=== PATIENT | male | born 1980 | race Caucasian/White ===

== ENCOUNTER 2021-10-03 12:10 | Emergency (ER) | payer OTHER, SELFPAY ==
--- NOTE | ~2021-10-03 | XR_ITS ---
EXAMINATION: XR shoulder RT min 2V, XR elbow LT 2V CLINICAL INFORMATION: Fall. Pain. COMPARISON: None. TECHNIQUE: 3 view series left elbow; 3 view series right shoulder FINDINGS: Left elbow: The radial head appears intact. No fractures identified. Soft tissue inflammatory changes are noted along the ulnar aspect of the elbow. No joint effusion identified. No subluxations visualized. Soft tissue inflammatory changes are additionally noted adjacent to the olecranon and posterior aspect of the distal humerus. No embedded radiopaque foreign bodies visualized. Right shoulder: Normal glenohumeral alignment. 2 mm superior subluxation of the distal clavicle relative to the acromion. The visualized right ribs and lung are normal in appearance. No fractures identified. The AC joint measures 8 mm in width. XR/XR shoulder RT min 2V IMPRESSION: Left elbow: *No acute fractures or subluxations. *Soft tissue inflammatory changes. Right shoulder: *2 mm superior subluxation of the distal clavicle relative the acromion with borderline widening of the acromioclavicular joint. These findings may represent mild (type II) acromioclavicular joint injury.
--- NOTE | ~2021-10-03 | XR_ITS ---
EXAMINATION: XR shoulder RT min 2V, XR elbow LT 2V CLINICAL INFORMATION: Fall. Pain. COMPARISON: None. TECHNIQUE: 3 view series left elbow; 3 view series right shoulder FINDINGS: Left elbow: The radial head appears intact. No fractures identified. Soft tissue inflammatory changes are noted along the ulnar aspect of the elbow. No joint effusion identified. No subluxations visualized. Soft tissue inflammatory changes are additionally noted adjacent to the olecranon and posterior aspect of the distal humerus. No embedded radiopaque foreign bodies visualized. Right shoulder: Normal glenohumeral alignment. 2 mm superior subluxation of the distal clavicle relative to the acromion. The visualized right ribs and lung are normal in appearance. No fractures identified. The AC joint measures 8 mm in width. XR/XR elbow LT 2V IMPRESSION: Left elbow: *No acute fractures or subluxations. *Soft tissue inflammatory changes. Right shoulder: *2 mm superior subluxation of the distal clavicle relative the acromion with borderline widening of the acromioclavicular joint. These findings may represent mild (type II) acromioclavicular joint injury.
[2021-10-03 12:24] VITALS: BP 189/167; PULSE 93; RESP 18; TEMP 36.8; O2SAT 100; BMI 25.0
--- NOTE | 2021-10-03 12:40 | ED.GENADULT ---
HPI - General Adult General Chief complaint: Fall Stated complaint: shoulder pain Time Seen by Provider: 10/03/21 12:40 Source: patient Mode of arrival: ambulatory Limitations: no limitations History of Present Illness HPI narrative: Patient is a 41 year old male presenting to the emergency department today with right shoulder pain and left elbow pain after falling out of a wrestling ring. 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 Patient denies hitting his head with the incident. Patient denies any dizziness, lightheadedness, abdominal pain, nausea, vomiting, fever, chills, blurry vision, double vision, loss of vision, chest pain, difficulty breathing, shortness of breath, back pain, night sweats, pain with urination, increased urinary frequency, increased urinary urgency, blood in his urine or stool, syncope or a near syncopal episode, bowel incontinence, bladder incontinence, bowel retention, bladder retention, or any other complaints at this time. Onset (ago): hour(s) Location: left, right and upper extremity Radiation: non-radiation Severity: mild Severity scale (1-10): 3 Quality: dull Pain Consistency: constant Relieving factors: none Exacerbating factors: movement Associated symptoms: denies other symptoms Treatments prior to arrival: none Related Data Allergies Allergy/AdvReac Type Severity Reaction Status Date / Time No Known Allergies Allergy Unverified 01/09/20 16:30 [No Known Allergies*] Review of Systems Constitutional: Constitutional: Reports no additional constitutional complaints, Denies chills, Denies fever(s) and Denies night sweats Eyes: Eyes: Reports no additional eye complaints, Denies blurry vision, Denies change in vision, Denies diplopia, Denies eye discharge, Denies loss of vision and Denies eye pain ENT: Denies dizziness Cardiovascular: Cardiovascular: Reports no additional cardiovascular complaints, Denies chest pain, Denies lightheadedness, Denies Loss of Consciousness and Denies dyspnea Respiratory: Respiratory: Reports no additional respiratory complaints and Denies dyspnea Gastrointestinal: Gastrointestinal: Reports no additional gastrointestinal complaints, Denies abdominal pain, Denies melena, Denies hematochezia, Denies change in bowel habits and Denies change in stool character Genitourinary: Genitourinary: Reports no additional male genitourinary complaints, Denies hematuria, Denies oliguria, Denies difficulty urinating, Denies dysuria, Denies urinary frequency, Denies urinary hesitancy, Denies urinary incontinence and Denies urinary urgency Musculoskeletal: Musculoskeletal: Reports no additional musculoskeletal complaints, Denies numbness and Denies tingling Comments: right shoulder pain and left elbow pain Neurologic: Denies dizziness, Denies loss of vision, Denies numbness and Denies tingling Psychiatric: Psychiatric: Reports no additional psychiatric complaints Endocrine: Endocrine: Reports no additional endocrine complaints Hematologic/Lymphatic: Hematologic/Lymphatic: Reports no additional hematologic/lymphatic complaints Allergic/Immunologic: Allergic/Immunologic: Reports no additional allergic/immunologic complaints [facility] Past Medical History Attestation statement: The following information was validated with the patient. Source: old records reviewed Social History Social History Advance Directives: No Advance Directives Information Provided: No Physical Exam ED Vital Signs: Vital Signs - 24 hr 10/03/21 12:24 Temperature 98.3 F Pulse Rate 93 Respiratory Rate 18 Blood Pressure 189/167 H Pulse Oximetry 100 Oxygen Delivery Method Room Air BMI result Body Mass Index 25.0 Const General: cooperative, no acute distress, alert and awake Nutritional Appearance: well nourished Orientation/consciousness: patient oriented x3 Limitations: no limitations HENMT Head: Yes normal to inspection and Yes atraumatic Ears: hearing grossly normal bilaterally and external ears normal General nose exam: Normal external nose present, no nasal discharge noted and no epistaxis Face and sinus: Yes normal facial exam, No abrasion and No laceration Mouth: Normal oral and palatal mucosa present, no drooling and no muffled voice Eyes General: appearance normal, both eyes and all related structures Periorbital: periorbital findings normal Eyelids: Yes eyelids normal Conjunctivae: conjunctivae normal Pupils: Equal, round and reactive pupils present EOM: EOMs intact bilaterally Neck Neck: Yes normal visual inspection, Yes full ROM and Yes no lymphadenopathy Chest Chest palpation & inspection: normal inspection of the chest Resp Effort & Inspection: normal respiratory effort and able to speak in complete sentences Auscultation: clear to auscultation bilaterally Cardio Rate: regular rate Rhythm: regular rhythm GI Inspection: Yes normal to inspection Neuro General: patient oriented x3 and moves all extremities Cranial nerves: Yes Equal, round and reactive pupils present Cognition (Neuro): normal cognition Motor exam (neuro): 5/5 motor strength present throughout Sensory Exam: Normal double simultaneous stimulation for sensation Coordination: [id number] test normal Extrem Other: pain with ROM to the right shoulder General: Yes normal to inspection and Yes capillary refill normal Psych Appearance: grossly normal Mental Status: mental status grossly normal Affect: normal affect Attitude: cooperative Thought process: Normal thought process present Thought content: Normal thought content present Insight: Good insight present (Psych) Procedures Orthopedic Splinting/Casting Injury #1: Side: left Upper Extremity Injury Location: shoulder Upper Extremity Immobilizer: sling/shoulder immobilizer Medical Decision Making MDM Narrative Medical decision making narrative: Patient is a 41 year old male presenting to the emergency department today with right shoulder pain and left elbow pain. Patient's physical exam showed pain with ROM of the right shoulder but was otherwise unremarkable. Patient's left elbow x-ray showed no acute process. Patient's right shoulder x-ray showed a mild type 2 acromioclavicular joint injury. I explained my physical exam findings as well as all test results to the patient. I answered all questions asked by the patient. Patient's right shoulder was placed in a sling, without incident. PMS was in tact prior to and after sling was placed. I stressed the importance of the patient taking his medication as prescribed. I stressed the importance of the patient following up with his primary care provider and an orthopedic provider. I stressed the importance of the patient returning to the emergency department immediately if his symptoms were to worsen or if he were to develop any dizziness, shortness of breath, difficulty breathing, chest pain, blurry vision, loss of vision, nausea, vomiting, abdominal pain, fever, chills, back pain, or any other complaints. Patient verbalized agreement and understanding with this treatment plan and discharge. Differential Diagnosis Differential Diagnosis: shoulder seperation, shoulder injury Medical Records Medical records reviewed: Yes I reviewed the patient's medical records. Imaging Data Right shoulder and left elbow x-ray: Attestation: I personally reviewed and interpreted this imaging study as follows: My impression: Possible right shoulder injury. Radiologist's impression: EXAMINATION: XR shoulder RT min 2V, XR elbow LT 2V CLINICAL INFORMATION: Fall. Pain. COMPARISON: None. TECHNIQUE: 3 view series left elbow; 3 view series right shoulder FINDINGS: Left elbow: The radial head appears intact. No fractures identified. Soft tissue inflammatory changes are noted along the ulnar aspect of the elbow. No joint effusion identified. No subluxations visualized. Soft tissue inflammatory changes are additionally noted adjacent to the olecranon and posterior aspect of the distal humerus. No embedded radiopaque foreign bodies visualized. Right shoulder: Normal glenohumeral alignment. 2 mm superior subluxation of the distal clavicle relative to the acromion. The visualized right ribs and lung are normal in appearance. No fractures identified. The AC joint measures 8 mm in width. XR/XR elbow LT 2V IMPRESSION: Left elbow: *No acute fractures or subluxations. *Soft tissue inflammatory changes. ? Right shoulder: *2 mm superior subluxation of the distal clavicle relative the acromion with borderline widening of the acromioclavicular joint. These findings may represent mild (type II) acromioclavicular joint injury. Dictated By: Benson Mann MD Signed By: Electronically signed by Benson Mann MD 10/03/21 1333 Discharge Plan Discharge Clinical Impression: shoulder Patient Disposition: Home, Self-Care Instructions: Shoulder Sprain (ED) Additional Instructions: Follow up with your primary care provider and an orthopedic provider. Return to the emergency department immediately if your symptoms worsen or if you develop any dizziness, shortness of breath, difficulty breathing, chest pain, blurry vision, loss of vision, nausea, vomiting, abdominal pain, fever, chills, back pain, or any other complaints. Referrals: [facility] [place] Family [facility] [Provider Group] [facility] [place] [facility]] [facility] [place] [facility] [Provider Group] [facility] [place] [facility] [Provider Group] Interventions: ED Discharge Assessment Last Done: 10/03/21 14:27 Print Language: Lao
[2021-10-03] MEDS: Ketorolac Tromethamine 30 MG/ML VIAL IM (13:24)
[2021-10-03] MEDS: HYDROcodone Bit/Acetam 5/325 TABLET 1 TAB PO (14:21)
== END 2021-10-03 14:28 | disposition home or self-care (01) ==
PROVIDERS: Emergency Provider Emergency Medicine
DX: S43.111A Subluxation of right acromioclavicular joint, initial encounter (principal); M25.522 Pain in left elbow; W17.89XA Other fall from one level to another, initial encounter; Y93.72 Activity, wrestling; Y92.89 Other specified places as the place of occurrence of the external cause; Y99.9 Unspecified external cause status
CPT/HCPCS: 73030; 73070; 96372; 99283; 99284; J1885

== ENCOUNTER 2024-04-25 19:44 | Emergency (ER) | payer MEDICAID, SELFPAY ==
--- NOTE | 2024-04-25 | ECG_ITS ---
Test Reason : CHEST PAIN Blood Pressure : / mmHG Vent. Rate : 068 BPM Atrial Rate : 068 BPM P-R Int : 136 ms QRS Dur : 078 ms QT Int : 362 ms P-R-T Axes : 066 024 026 degrees QTc Int : 384 ms Normal sinus rhythm Normal ECG No previous ECGs available Referred By: Generic ED Physician Electronically Signed By:MINAL PIMENTEL MD
[2024-04-25 19:58] VITALS: BP 162/109; BP 189/102; PULSE 75; PULSE 76; RESP 20; TEMP 36.8; O2SAT 98; BMI 26.6
[2024-04-25 20:11] LABS: MANUAL DIFF FLAG NO
[2024-04-25 20:12] LABS: Basophils Absolute Auto 0.1 X10*3/uL (0.0-0.2); Basophils Percent Auto 0.6 % (0-2); Eosinophils Absolute Auto 0.2 X10*3/uL (0.0-0.4); Eosinophils Percent Auto 2.3 % (0-4); Hematocrit 42.1 % (42.0-52.0); Hemoglobin 14.4 g/dl (14.0-18.0); Imm Gran Abs Auto 0.02 X10*3/uL (0.00-0.03); Imm Gran Pct Auto 0.2 % (0.0-0.4); Lymphocytes Absolute Auto 2.1 X10*3/uL (1.2-4.9); Mean Corpuscular HGB Conc 34.2 g/dl (31.0-36.0); Mean Corpuscular Hemoglobin 31.2 pg (27.0-33.0); Mean Corpuscular Volume 91.3 fL (80.0-98.0); Mean Platelet Volume 8.8 fL (9.4-12.4); Monocytes Absolute Auto 0.7 X10*3/uL (0.1-1.2); Monocytes Percent Auto 8.4 % (2-11); Neutrophils Absolute Auto 5.6 x10*3/uL (2.0-8.3); Neutrophils Percent Auto 64.5 % (45-73); Platelet Count 261 X10*3/uL (160-400); Red Blood Count 4.61 X10*6/uL (4.60-5.80); Red Cell Distribution Width 11.5 % (11.0-16.0); White Blood Count 8.7 X10*3/uL (4.8-10.8)
[2024-04-25 20:26] LABS: Alanine Aminotransferase 32 U/L (0-40); Albumin Level 4.6 g/dL (3.5-5.0); Alkaline Phosphatase 79 U/L (39-117); Anion Gap 13 (12-20); Aspartate Amino Transferase 30 U/L (5-37); Bilirubin Total 0.6 mg/dL (0.0-1.0); Blood Urea Nitrogen 15 mg/dL (9-16); Calcium 9.2 mg/dL (8.4-10.2); Carbon Dioxide 26 mmol/L (22-29); Chloride 108 mmol/L (96-108); Creatinine Clr Calc Pharmacy 75.4; Estimated Glomerular Filt Rate > 60; Glucose Random 107 mg/dL (60-115); Potassium 4.1 mmol/L (3.3-5.1); Sodium 143 mmol/L (135-145); Total Protein 7.7 g/dL (6.5-8.0)
[2024-04-25 20:35] LABS: Troponin-I High Sensitivity < 2.7 ng/L (<3.5-35.0)
[2024-04-25 20:52] VITALS: BP 138/81; PULSE 67; RESP 16; TEMP 36.7; O2SAT 99
--- NOTE | 2024-04-25 21:41 | ED_ITS ---
HPI - Chest Pain General Chief Complaint: Chest Pain Stated Complaint: cp Time Seen by Provider: 04/25/24 21:39 Source: patient Mode of arrival: ambulatory Limitations: no limitations History of Present Illness ED Provider: HPI narrative: Patient's history of anxiety taking sertraline hydroxyzine feel that did not working feel very anxious for last few days with chest pain and palpitation patient is unable to sleep Related Data Previous Rx's ?Medication ?Instructions ?Recorded clonazepam 1 mg tablet (Klonopin) 1 mg PO BID PRN anxiety #14 tabs 04/25/24 Allergies Allergy/AdvReac Type Severity Reaction Status Date / Time No Known Allergies Allergy Verified 04/25/24 20:01 [No Known Allergies*] Review of Systems 2 Review of Systems: Yes all other systems are reviewed and are negative [facility] Social History Social History Smoked in Last 30 Days: Yes Use of substances other than those prescribed or required for medical reasons: No Advance Directives: No Advance Directives Information Provided: No Do you have a plan to hurt others: No Plan Physical Exam 2 Vital Signs: Vital Signs: Last Vital Signs Temp 98.1 F 04/25/24 22:12 Pulse 62 04/25/24 22:12 Resp 16 04/25/24 22:12 BP 150/88 H 04/25/24 22:12 Pulse Ox 98 04/25/24 22:12 O2 Del Method Room Air 04/25/24 22:12 BMI result Body Mass Index 26.6 Appearance: Alert. Oriented X3. No acute distress. anxious Eyes: PERRLA, No Nystagmus ENT: Pharynx normal. Oral Mucosa moist Neck: Normal inspection. Neck supple. CVS: Normal heart rate and rhythm. Pulses normal. Respiratory: No respiratory distress. Equal air entry bilateral, no wheezing/rales/rhonchi Abdomen: Soft and nontender. Bowel sounds are present, no mass palpable, no CVA tenderness Skin: Skin warm and dry. Normal skin color. Normal skin turgor. Extremities: No lower extremity edema. No calf tenderness Neuro: Oriented X 3. No motor deficit. No sensory deficit.No cerebellar signs , cranial nerves II-XII intact Medications Administered Discontinued Medications Generic Name Dose Route Start Last Admin Trade Name Freq PRN Reason Stop Dose Admin Clonazepam 1 mg 04/25/24 22:23 04/25/24 22:42 Clonazepam 1 Mg Tablet PO 04/25/24 22:24 1 mg ONCE ONE Administration Medical Decision Making Medical Decision Making [facility] Narrative: Patient's anxiety with palpitation heart score of 0 atypical chest pain cardiac enzymes negative EKG without ischemic changes discharge patient on Klonopin Lab Data [facility] Lab Attestation statement: I reviewed the patient's lab results. 04/25/24 20:06 04/25/24 20:06 Labs: Lab Results 04/25/24 Range/Units 20:06 WBC 8.7 (4.8-10.8) X10*3/uL RBC 4.61 (4.60-5.80) X10*6/uL Hgb 14.4 (14.0-18.0) g/dl Hct 42.1 (42.0-52.0) % MCV 91.3 (80.0-98.0) fL MCH 31.2 (27.0-33.0) pg MCHC 34.2 (31.0-36.0) g/dl RDW 11.5 (11.0-16.0) % Plt Count 261 (160-400) X10*3/uL MPV 8.8 L (9.4-12.4) fL Immature Gran % (Auto) 0.2 (0.0-0.4) % Neut % (Auto) 64.5 (45-73) % Lymph % (Auto) 24.0 (20-40) % [place] % (Auto) 8.4 (2-11) % Eos % (Auto) 2.3 (0-4) % Baso % (Auto) 0.6 (0-2) % Lymph # (Auto) 2.1 (1.2-4.9) X10*3/uL [place] # (Auto) 0.7 (0.1-1.2) X10*3/uL Eos # (Auto) 0.2 (0.0-0.4) X10*3/uL Baso # (Auto) 0.1 (0.0-0.2) X10*3/uL Abs Immat Gran (auto) 0.02 (0.00-0.03) X10*3/uL Absolute Neuts (auto) 5.6 (2.0-8.3) x10*3/uL Absolute Nucleated RBC 0.000 (0.0-0.012) X10*3/uL Nucleated RBC % (auto) 0.0 (0.0-0.2) /100WBC Sodium 143 (135-145) mmol/L Potassium 4.1 (3.3-5.1) mmol/L Chloride 108 (96-108) mmol/L Carbon Dioxide 26 (22-29) mmol/L Anion Gap 13 (12-20) BUN 15 (9-16) mg/dL Creatinine 1.11 (0.5-1.4) mg/dL Estim Creat Clear Calc 75.4 Estimated GFR > 60 Random Glucose 107 (60-115) mg/dL Calcium 9.2 (8.4-10.2) mg/dL Total Bilirubin 0.6 (0.0-1.0) mg/dL AST 30 (5-37) U/L ALT 32 (0-40) U/L Alkaline Phosphatase 79 (39-117) U/L Troponin I High Sens < 2.7 (<3.5-35.0) ng/L Total Protein 7.7 (6.5-8.0) g/dL Albumin 4.6 (3.5-5.0) g/dL Independent Interpretation I performed an independent interpretation of an: EKG Interpretation: Normal sinus rhythm heart rate 68 beats per minute normal interval normal axis no acute STT wave changes no acute ischemia Discharge Plan Discharge Clinical Impression: Anxiety Patient Disposition: Home, Self-Care Instructions: Anxiety (ED) Additional Instructions: Take medicine for anxiety as prescribed by your psychiatrist Klonopin twice a day for severe anxiety Follow up with your therapist Prescriptions: New clonazepam [Klonopin] 1 mg tablet 1 mg PO BID PRN (Reason: anxiety) Qty: 14 0RF Interventions: ED Discharge Assessment Last Done: 04/25/24 22:45 Print Language: Ukrainian
[2024-04-25 22:12] VITALS: BP 150/88; PULSE 62; RESP 16; TEMP 36.7; O2SAT 98
[2024-04-25] MEDS: clonazePAM 1 MG TABLET PO (22:42)
--- NOTE | 2024-04-25 22:44 | PC.NURSE ---
Medicated pt per jun, pt report relief in chest pain, 06/03, Reviewed discharge instructions with pt. pt verbalized understanding. pt has a steady gait upon discharge.
[2024-04-25 22:45] VITALS: BP 130/85; PULSE 68; RESP 16; TEMP 36.7; O2SAT 98
== END 2024-04-25 22:46 | disposition home or self-care (01) ==
PROVIDERS: Emergency Provider Internal Medicine
DX: R07.89 Other chest pain (principal); F41.9 Anxiety disorder, unspecified; Z79.899 Other long term (current) drug therapy
CPT/HCPCS: 36415; 80053; 84484; 85025; 93005; 99283; 99285

== ENCOUNTER → 2024-04-25 19:50 | Outpatient (BNV) | payer MEDICAID, SELFPAY | PROVIDERS: Emergency Provider Internal Medicine; Visit Provider Internal Medicine Cardiovascular Disease | DX: R07.9 Chest pain, unspecified (principal) | CPT/HCPCS: 93010 ==